=== PATIENT | female | born 1930 | race African-American/Black ===

== ENCOUNTER 2019-11-11 21:50 | Inpatient (IN) | payer MEDICARE ==
[~2019-11-11] VITALS: Ht 170.2 cm; Wt 53.2 kg
--- NOTE | 2019-11-11 22:13 | Emergency Room Report ---
History of Present Illness General Chief Complaint: Upper Respiratory Illness Source: Medical Record, EMS Present Illness HPI This is an unfortunate 89-year-old female from a care home. She has history of respiratory failure, CHF, schizophrenia, cardiomyopathy, Alzheimer, malignant pleural effusion who was admitted to [facility] last month and was discharged to [facility] recently. She was also positive for cocaine pneumonia diagnosed on November 07, 2019. She presents with chief complaint of shortness of breath and fever. Per EMS, she had a fever 101 at the care home. She was also short of breath and hypoxic to 90% on room air. She also has a cough. On her last admission she was admitted for pneumonia. Unknown CODE STATUS. Unable to get any other history from this patient because of her condition. 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 COVID-19 Screening: Positive COVID-19 COVID-19 Testing Source: SNF Patient History Past Medical History: see triage record, old chart reviewed Past Surgical History: other Pertinent Family History: none Social History: Denies: smoking Last Menstrual Period: NA Now: No Immunizations: other Reviewed Nursing Documentation: PMH: Agreed; PSxH: Agreed Nursing Documentation-PMH Hx Cardiac Problems: Yes - CHF; CARDIOMYOPATHY Hx Hypertension: Yes Hx Cancer: Yes - PLEURAL Hx Dialysis: No - AKF History Of Psychiatric Problem: Yes - SCHIZOPHRENIA Hx Neurological Problems: Yes - ALZEIMERS Hx Cerebrovascular Accident: Yes Review of Systems Constitutional: Reports: fever Respiratory: Reports: shortness of breath All Other Systems: limited - Secondary to patient condition Physical Exam Vital Signs Date Time Temp Pulse Resp B/P (MAP) Pulse Ox O2 Delivery O2 Flow Rate FiO2 11/11/19 21:46 96.1 110 26 145/72 (96) 97 Non-Rebreather 15.0 Vitals with tachycardia and hypoxia Sp02 EP Interpretation: abnormal General Appearance: moderate distress, cachetic, Chronically Ill Head: normocephalic, atraumatic Eyes: bilateral eye PERRL, bilateral eye EOMI ENT: dry mucus membranes Neck: no meningismus Respiratory: chest non-tender, respiratory distress, decreased breath sounds, accessory muscle use, crackles, rhonchi Cardiovascular #1: no murmur, tachycardia, irregularly irregular Gastrointestinal: normal bowel sounds, non tender, no mass, no organomegaly, no bruit, non-distended Musculoskeletal: back normal, other - Contracted Neurologic: no focal defects Psychiatric: other Skin: warm/dry Procedures Critical Care Time Critical Care Time Critical care is mandated in this patient who presented with sepsis secondary to cold with pneumonia. Patient require my urgent intervention to attenuate the risks of metabolic collapse which may lead to cardiovascular collapse and . Critical care time is 75 minutes excluding any reportable procedure. Critical care time included evaluation, multiple reevaluation, looking at old charts, interpreting laboratory and diagnostic data, discussing case with patient and family and consultants, and charting. Medical Decision Making Diagnostic Impression: Primary Impression: Severe sepsis Additional Impressions: Pneumonia due to COVID-19 virus Respiratory failure with hypoxia Qualified Codes: J96.21 - Acute and chronic respiratory failure with hypoxia ARF (acute renal failure) Qualified Codes: N17.9 - Acute kidney failure, unspecified Acute metabolic encephalopathy Acute hypernatremia ACS (acute coronary syndrome) Rapid atrial fibrillation ER Course Patient presents with altered mental status secondary to covid with pneumonia. She is very dehydrated with acute renal failure and hypernatremia. Antibiotics given here. She also received steroid and Lovenox. Fluids given. Troponin intermediate secondary to stress response from infection. No evidence of ST elevation ID. EKG show atrial fibrillation. This appear to be new onset. Oxygenation better on oxygen. Prognosis poor based on her age and other comorbidities. I contacted Dr. Cohen for admission. EKG Diagnostic Results Rate: tachycardiac Rhythm: other - Atrial fibrillation ST Segments: other - Nonspecific ST changes ASA given to the pt in ED: No Rhythm Strip Diag. Results EP Interpretation: yes Rate: 107 Rhythm: no PVC's, no ectopy, other - A. fib Chest X-Ray Diagnostic Results Chest X-Ray Diagnostic Results : Chest X-Ray Ordered: Yes # of Views/Limited/Complete: 1 View Indication: Shortness of Breath EP Interpretation: Yes Interpretation: no pneumothorax, other - cm, large right infiltrate vs effusion. Impression: Other - rt LL infiltrates Electronically Signed by: Jakob Burrell MD Last Vital Signs Date Time Temp Pulse Resp B/P (MAP) Pulse Ox O2 Delivery O2 Flow Rate FiO2 11/11/19 21:46 96.1 110 26 145/72 (96) 97 Non-Rebreather 15.0 Status: improved Disposition: ADMITTED INPATIENT Condition: Critical Jakob Burrell MD Nov 11, 2019 22:13
[2019-11-11] MEDS ORDERED: dexAMETHasone 10mg/ml Inj IV ONE (22:15)
[2019-11-11] MEDS ORDERED: Cefepime HCl 2 GM in NS 110 ML IV ONE (22:15)
[2019-11-11 22:30] LABS: HEMATOCRIT 45.6 % (37.0-47.0); HEMOGLOBIN 14.3 G/DL (12.0-16.0); MEAN CORPUSCULAR VOLUME 95 FL (80-99); PLATELET COUNT 80 K/UL (150-450); RED BLOOD COUNT 4.81 M/UL (4.20-5.40); RED CELL DISTRIBUTION WIDTH 16.8 % (11.6-14.8); WHITE BLOOD COUNT 7.5 K/UL (4.8-10.8)
[2019-11-11 22:54] VITALS: BP 145/72
[2019-11-11 23:02] LABS: ALANINE AMINOTRANSFERASE 59 U/L (12-78); ALBUMIN 2.3 G/DL (3.4-5.0); ALBUMIN/GLOBULIN RATIO 0.4 (1.0-2.7); ALKALINE PHOSPHATASE 222 U/L (46-116); ASPARTATE AMINO TRANSFERASE 56 U/L (15-37); BLOOD UREA NITROGEN 95 mg/dL (7-18); CALCIUM 10.3 MG/DL (8.5-10.1); CARBON DIOXIDE 28 MMOL/L (21-32); CHLORIDE 120 MMOL/L (98-107); CREATININE 2.3 MG/DL (0.55-1.30); FERRITIN > 2000 NG/ML (8-388); POTASSIUM 4.6 MMOL/L (3.5-5.1)
[2019-11-11 23:04] LABS: SODIUM 162 MMOL/L (136-145)
[2019-11-11 23:12] VITALS: BP 145/72
[2019-11-11] MEDS ORDERED: Enoxaparin 60mg Inj SUBQ ONE (23:15)
--- NOTE | 2019-11-11 23:19 | Emergency Room Report ---
Sepsis Event Note Evaluation Current Stage of Sepsis: Severe Sepsis Possible Source: Pulmonary Focused Exam Allergies: Coded Allergies: No Known Allergies (Unverified , 11/11/19) Date Exam Occurred: Nov 11, 2019 Time Exam Occurred: 23:19 Laboratory Studies Laboratory Tests Test 11/11/19 22:10 White Blood Count 7.5 K/UL (4.8-10.8) Red Blood Count 4.81 M/UL (4.20-5.40) Hemoglobin 14.3 G/DL (12.0-16.0) Hematocrit 45.6 % (37.0-47.0) Mean Corpuscular Volume 95 FL (80-99) Mean Corpuscular Hemoglobin 29.7 PG (27.0-31.0) Mean Corpuscular Hemoglobin Concent 31.3 G/DL (32.0-36.0) L Red Cell Distribution Width 16.8 % (11.6-14.8) H Platelet Count 80 K/UL (150-450) L Mean Platelet Volume 9.5 FL (6.5-10.1) Neutrophils (%) (Auto) % (45.0-75.0) Lymphocytes (%) (Auto) % (20.0-45.0) Monocytes (%) (Auto) % (1.0-10.0) Eosinophils (%) (Auto) % (0.0-3.0) Basophils (%) (Auto) % (0.0-2.0) Differential Total Cells Counted 100 Neutrophils % (Manual) 81 % (45-75) H Lymphocytes % (Manual) 5 % (20-45) L Monocytes % (Manual) 8 % (1-10) Eosinophils % (Manual) 0 % (0-3) Basophils % (Manual) 0 % (0-2) Band Neutrophils 6 % (0-8) Platelet Estimate Decreased L Platelet Morphology Normal Polychromasia 1+ Hypochromasia 1+ Anisocytosis 1+ D-Dimer 4.28 mg/L FEU (0.00-0.49) H Sodium Level 162 MMOL/L (136-145) *H Potassium Level 4.6 MMOL/L (3.5-5.1) Chloride Level 120 MMOL/L (98-107) H Carbon Dioxide Level 28 MMOL/L (21-32) Blood Urea Nitrogen 95 mg/dL (7-18) H Creatinine 2.3 MG/DL (0.55-1.30) H Estimat Glomerular Filtration Rate 24.2 mL/min (>60) Glucose Level 53 MG/DL (74-106) L Lactic Acid Level Pending Calcium Level 10.3 MG/DL (8.5-10.1) H Ferritin > 2000 NG/ML (8-388) H Total Bilirubin 1.0 MG/DL (0.2-1.0) Aspartate Amino Transf (AST/SGOT) 56 U/L (15-37) H Alanine Aminotransferase (ALT/SGPT) 59 U/L (12-78) Alkaline Phosphatase 222 U/L (46-116) H Troponin I 0.185 ng/mL (0.000-0.056) C-Reactive Protein, Quantitative Pending Total Protein 8.1 G/DL (6.4-8.2) Albumin 2.3 G/DL (3.4-5.0) L Globulin 5.8 g/dL Albumin/Globulin Ratio 0.4 (1.0-2.7) L Vital Signs Last 24 Hour Vital Signs Date Time Temp Pulse Resp B/P (MAP) Pulse Ox O2 Delivery O2 Flow Rate FiO2 11/11/19 23:12 107 30 145/72 99 Simple Mask 10.0 11/11/19 22:54 96.1 109 26 145/72 97 Non-Rebreather 15.0 11/11/19 22:10 110 26 Non-Rebreather 15.0 11/11/19 21:46 96.1 110 26 145/72 (96) 97 Non-Rebreather 15.0 Respiratory Exam: Crackles Cardiovascular Exam: Iregularly Irregular Capillary Refill: Less Than 2 Seconds Peripheral Pulse: Strong Pulse Location: Radial Skin Exam: Normal Jakob Arteaga MD Nov 11, 2019 23:19
[2019-11-11] MEDS ORDERED: Acetaminophen 650 MG SUPP RECTAL PRN (23:30)
[2019-11-12] VITALS (59 sets, daily range): BP systolic 48–140; BP diastolic 31–110
[2019-11-12] MEDS ORDERED: D5 1/2NS 1,000 ML IV SCH (00:15)
[2019-11-12 00:24] LABS: BILIRUBIN, URINE NEGATIVE (NEGATIVE); GLUCOSE, URINE (UA) NEGATIVE (NEGATIVE); KETONES,URINE NEGATIVE (NEGATIVE); LEUKOCYTE ESTERASE ,URINE 2+ (NEGATIVE); NITRITE,URINE POSITIVE (NEGATIVE); PH,URINE 5 (4.5-8.0); PROTEIN,URINE 2+ (NEGATIVE); UROBILINOGEN,URINE NORMAL MG/DL (0.0-1.0)
[2019-11-12 00:30] LABS: APPEARANCE,URINE SLIGHTLY CLOUDY; COLOR,URINE YELLOW
[2019-11-12] MEDS ORDERED: LORazepam Inj 2mg/ml 1ml IV ONE (00:30)
[2019-11-12] MEDS ORDERED: dilTIAZem HCl 25mg/5ml Inj IVP ONE (00:45)
[2019-11-12] MEDS ORDERED: ASPIRIN325 MG ORAL (07:13)
[2019-11-12] MEDS ORDERED: ABILIFY5 MG ORAL (07:13)
[2019-11-12] MEDS ORDERED: MULTIVITAMINS1 EAC2 ORAL (07:13)
[2019-11-12] MEDS ORDERED: LOSARTAN POTASS25 MG ORAL (07:13)
[2019-11-12] MEDS ORDERED: DOCUSATE SODIU100 MG ORAL (07:13)
[2019-11-12] MEDS ORDERED: CARVEDILOL12.5 MG ORAL (07:13)
[2019-11-12] MEDS ORDERED: FUROSEMIDE40 MG ORAL (07:13)
--- NOTE | 2019-11-12 08:20 | Cardiac Electrophysiology PN ---
Subjective Subjective [id number].Unresponsive, Fib 105, BP 50s, Na 162, BUN 95, cr 2.5 Code was called. Transfer to ICU. iv fluid and LEvophed Objective Last 24 Hour Vital Signs Date Time Temp Pulse Resp B/P (MAP) Pulse Ox O2 Delivery O2 Flow Rate FiO2 11/12/19 04:59 Simple Mask 10.0 11/12/19 00:50 97.2 104 24 108/74 98 Simple Mask 10.0 11/12/19 00:50 97.2 104 22 108/66 98 Simple Mask 10.0 11/12/19 00:41 125 148/86 11/12/19 00:41 115 22 142/86 100 11/12/19 00:00 132 32 140/110 96 Simple Mask 10.0 11/11/19 23:12 107 30 145/72 99 Simple Mask 10.0 11/11/19 22:54 96.1 109 26 145/72 97 Non-Rebreather 15.0 11/11/19 22:10 110 26 Non-Rebreather 15.0 11/11/19 21:46 96.1 110 26 145/72 (96) 97 Non-Rebreather 15.0 Intake and Output 11/11/19 11/12/19 19:00 07:00 Intake Total 2335 ml Output Total 300 ml Balance 2035 ml Intake IV Total 2335 ml Output Urine Total 300 ml # Voids 1 Laboratory Tests Test 11/11/19 22:10 11/12/19 00:00 11/12/19 03:10 11/12/19 07:55 White Blood Count 7.5 K/UL (4.8-10.8) Pending Red Blood Count 4.81 M/UL (4.20-5.40) Pending Hemoglobin 14.3 G/DL (12.0-16.0) Pending Hematocrit 45.6 % (37.0-47.0) Pending Mean Corpuscular Volume 95 FL (80-99) Pending Mean Corpuscular Hemoglobin 29.7 PG (27.0-31.0) Pending Mean Corpuscular Hemoglobin Concent 31.3 G/DL (32.0-36.0) L Pending Red Cell Distribution Width 16.8 % (11.6-14.8) H Pending Platelet Count 80 K/UL (150-450) L Pending Mean Platelet Volume 9.5 FL (6.5-10.1) Pending Neutrophils (%) (Auto) % (45.0-75.0) Pending Lymphocytes (%) (Auto) % (20.0-45.0) Pending Monocytes (%) (Auto) % (1.0-10.0) Pending Eosinophils (%) (Auto) % (0.0-3.0) Pending Basophils (%) (Auto) % (0.0-2.0) Pending Differential Total Cells Counted 100 Neutrophils % (Manual) 81 % (45-75) H Lymphocytes % (Manual) 5 % (20-45) L Monocytes % (Manual) 8 % (1-10) Eosinophils % (Manual) 0 % (0-3) Basophils % (Manual) 0 % (0-2) Band Neutrophils 6 % (0-8) Platelet Estimate Decreased L Platelet Morphology Normal Polychromasia 1+ Hypochromasia 1+ Anisocytosis 1+ D-Dimer 4.28 mg/L FEU (0.00-0.49) H Pending Sodium Level 162 MMOL/L (136-145) *H Pending Potassium Level 4.6 MMOL/L (3.5-5.1) Pending Chloride Level 120 MMOL/L (98-107) H Pending Carbon Dioxide Level 28 MMOL/L (21-32) Pending Blood Urea Nitrogen 95 mg/dL (7-18) H Pending Creatinine 2.3 MG/DL (0.55-1.30) H Pending Estimat Glomerular Filtration Rate 24.2 mL/min (>60) Pending Glucose Level 53 MG/DL (74-106) L Pending Lactic Acid Level 2.40 mmol/L (0.4-2.0) H 2.30 mmol/L (0.66-2.22) H Calcium Level 10.3 MG/DL (8.5-10.1) H Pending Ferritin > 2000 NG/ML (8-388) H Pending Total Bilirubin 1.0 MG/DL (0.2-1.0) Pending Aspartate Amino Transf (AST/SGOT) 56 U/L (15-37) H Pending Alanine Aminotransferase (ALT/SGPT) 59 U/L (12-78) Pending Alkaline Phosphatase 222 U/L (46-116) H Pending Troponin I 0.185 ng/mL (0.000-0.056) Pending C-Reactive Protein, Quantitative 73.9 mg/dL (0.00-0.90) H Pending Total Protein 8.1 G/DL (6.4-8.2) Pending Albumin 2.3 G/DL (3.4-5.0) L Pending Globulin 5.8 g/dL Pending Albumin/Globulin Ratio 0.4 (1.0-2.7) L Urine Color Yellow Urine Appearance Slightly cloudy Urine pH 5 (4.5-8.0) Urine Specific [place] 1.015 (1.005-1.035) Urine Protein 2+ (NEGATIVE) H Urine Glucose (UA) Negative (NEGATIVE) Urine Ketones Negative (NEGATIVE) Urine Blood 4+ (NEGATIVE) H Urine Nitrite Positive (NEGATIVE) H Urine Bilirubin Negative (NEGATIVE) Urine Urobilinogen Normal MG/DL (0.0-1.0) Urine Leukocyte Esterase 2+ (NEGATIVE) H Urine RBC 10-15 /HPF (0 - 2) H Urine WBC 30-40 /HPF (0 - 2) H Urine Squamous Epithelial Cells Few /LPF (NONE/OCC) Urine Bacteria Moderate /HPF (NONE) H POC Whole Blood Glucose Pending Phosphorus Level Pending Magnesium Level Pending Microbiology Date/Time Source Procedure Growth Status 11/11/19 22:10 Rectum Received Jordon Serrato MD Nov 12, 2019 08:20
[2019-11-12 08:23] LABS: HEMATOCRIT 38.4 % (37.0-47.0); HEMOGLOBIN 12.1 G/DL (12.0-16.0); MEAN CORPUSCULAR VOLUME 92 FL (80-99); PLATELET COUNT 58 K/UL (150-450); RED BLOOD COUNT 4.16 M/UL (4.20-5.40); WHITE BLOOD COUNT 2.8 K/UL (4.8-10.8)
[2019-11-12 08:45] LABS: ALANINE AMINOTRANSFERASE 32 U/L (12-78); ALBUMIN 1.7 G/DL (3.4-5.0); ALBUMIN/GLOBULIN RATIO 0.4 (1.0-2.7); ALKALINE PHOSPHATASE 173 U/L (46-116); ANION GAP 12 mmol/L (5-15); ASPARTATE AMINO TRANSFERASE 46 U/L (15-37); BILIRUBIN,TOTAL 0.9 MG/DL (0.2-1.0); BLOOD UREA NITROGEN 96 mg/dL (7-18); CALCIUM 9.1 MG/DL (8.5-10.1); CARBON DIOXIDE 28 MMOL/L (21-32); CHLORIDE 124 MMOL/L (98-107); CREATININE 2.7 MG/DL (0.55-1.30); FERRITIN > 2000 NG/ML (8-388); PHOSPHORUS 4.3 MG/DL (2.5-4.9); POTASSIUM 3.6 MMOL/L (3.5-5.1)
[2019-11-12] MEDS ORDERED: dexAMETHasone 10mg/ml Inj IV SCH (09:00)
[2019-11-12] MEDS ORDERED: Azithromycin 500 MG in D5W 275 ML IV SCH (09:00)
[2019-11-12] MEDS ORDERED: cefTRIAXone 1gm/D5W 55ml IVPB SCH ×2 (09:00)
[2019-11-12 09:14] LABS: SODIUM 164 MMOL/L (136-145)
--- NOTE | 2019-11-12 10:06 | Consultation ---
Consult Note Consult Note I am asked to evaluate the patient at the request of Dr. Noel burden. Patient seen in room 237. Discussed with RN. Discussed with Dr. Serrato. This is an unfortunate 89-year-old female from a detention. She has history of respiratory failure, CHF, schizophrenia, cardiomyopathy, Alzheimer, malignant pleural effusion who was admitted to [facility] last month and was discharged to [facility] recently. She was also positive for cocaine pneumonia diagnosed on November 07, 2019. She presents with chief complaint of shortness of breath and fever. Per EMS, she had a fever 101 at the detention. She was also short of breath and hypoxic to 90% on room air. She also has a cough. On her last admission she was admitted for pneumonia. Unknown CODE STATUS. Unable to get any other history from this patient because of her condition. 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 Assessment/Plan Renal Failure: Acute on chronic Hyponatremia partly due to prerenal azotemia and dehydration Pneumonia due to COVID-19 virus Respiratory failure Acute metabolic encephalopathy Acute coronary syndrome, rapid atrial fibrillation Patient was transferred to [facility] by Dr. Serrato Will await for 2D echocardiogram and kidney ultrasound Urine for tox screen since patient have history of cocaine abuse D5W 1 L IV Albumin 5% 500 cc bolus Avoid nephrotoxic's Optimize cardiac and pulmonary status Monitor renal parameters Patient full code Bryn Bower MD Nov 12, 2019 10:06
--- NOTE | 2019-11-12 10:30 | Consultation ---
DATE OF CONSULTATION: 11/12/2019 CARDIOLOGY CONSULTATION CONSULTING PHYSICIAN: Jordon Serrato MD REFERRING PHYSICIAN: Werner Cohen MD REASON FOR CONSULTATION: Hypotension. HISTORY OF PRESENT ILLNESS: The patient is an 89-year-old lady with history of schizophrenia, respiratory failure, congestive heart failure, cardiomyopathy, atrial fibrillation, and history of , who was admitted to [facility] last month and was discharged to [facility]. The patient was positive for COVID pneumonia on November 07, 2019. The patient was admitted for fever, shortness of breath, and had temperature of 101 at [facility] per paramedics. The patient was hypoxic on room air at 90% and had a cough. The patient was admitted for COVID pneumonia. This morning, the patient was noted to have the blood pressure in the 50s and Cardiology consultation was requested. I was actually on the unit when the nurse noted that the blood pressure was low and discussed the case with Dr. Cohen. At the time of my evaluation, the patient is unresponsive and is not able to provide any information. REVIEW OF SYSTEMS: Cannot be obtained. PAST MEDICAL HISTORY: As mentioned above. FAMILY HISTORY: Not available. SOCIAL HISTORY: half-way resident. No history of smoking or drinking. PHYSICAL EXAMINATION: VITAL SIGNS: Blood pressure was 108/66 at 1 o'clock in the morning. This morning, it was 52/30. HEAD AND NECK: Positive JVD. LUNGS: Decreased breath sounds. CARDIOVASCULAR: Shows S1 and S2 with no gallop, irregular. ABDOMEN: Soft. EXTREMITIES: She has 1+ pitting edema. LABORATORY AND DIAGNOSTIC DATA: Her labs show white count 7.5, hemoglobin of 14.3, hematocrit 45.3, and platelet count of 80,000. Sodium 162, potassium 4.6, BUN of 95, creatinine 2.3, and glucose of 53. Urinalysis is positive for bacteria. D-dimer is 4.28. ASSESSMENT AND PLAN: 1. Hypotension. The patient is unresponsive with blood pressure in the 50s. The Code was called. This is partly due to combination of sepsis and dehydration as the sodium is 162 with BUN of 95 and creatinine of 2.3. We will give the patient half-NS bolus. The patient was transferred to intensive care unit, but the Code was activated. The patient may need to be intubated in view of her altered level of consciousness. The patient is already on broad-spectrum IV antibiotics. 2. Elevated troponin of 0.185. It could be due to renal failure as BUN is 95 and creatinine 2.3. We will repeat cardiac enzymes and get the EKG and echocardiogram for further evaluation. 3. Severe hypernatremia. Sodium 162. IV fluids per ordering box operator. 4. Renal failure. BUN of 95, creatinine 2.3, and likely dehydration. 5. COVID-19 pneumonia. 6. Atrial fibrillation. I will discontinue metoprolol, hold off on anticoagulants, and then the patient is started on heparin drip, dexamethasone, azithromycin, and ceftriaxone. Thank you very much, Dr. Cohen, for allowing me to participate in the care of this patient. Please do not hesitate to contact me for any questions regarding my evaluation. Jordon Serrato M.D. DR: Anatoliy JOB#: [id number] CC:
[2019-11-12] MEDS: Norepinephrine 4mg/NS Premix 250 ML IV SCH ×2 (10:53→15:26)
--- NOTE | 2019-11-12 11:27 | Diagnostic Imaging Report ---
Procedure: XRAY Chest 1v Reason for study: Reason For Exam: SOB Comparison films: None. FINDINGS: A single one view chest is obtained. Vascularity is normal. Confluent alveolar densities in the right lung noted compatible with right lung infiltrates. Only mild haziness noted on the left side. There is cardiomegaly and tortuous aorta. There may be a small right effusion IMPRESSION: Right lung infiltrates and small right effusion.
--- NOTE | 2019-11-12 12:18 | Consultation ---
History of Present Illness General Date patient seen: Nov 12, 2019 Chief Complaint: Upper Respiratory Illness Present Illness HPI 89-year-old female with a history of respiratory failure, CHF, schizophrenia, cardiomyopathy, Alzheimer, malignant pleural effusion presented to ER by paramedics with chief complaint of shortness of breath and fever. She had a fever 101 at the [facility]. She was also short of breath and hypoxic to 90% on room air. She was diagnosed to have pneumonia, renal failure and rapid afib and admitted to [facility] Currently she is obtunded and desaturating to 70's on NRM. I called pt's son Russell, who stated that short intubation would be ok but no chest compression or cardiac shock. Allergies: Coded Allergies: No Known Allergies (Unverified , 11/11/19) Medication History Scheduled Aripiprazole* (Abilify*), 5 MG ORAL DAILY, (Reported) Aspirin* (Aspirin*), 325 MG ORAL DAILY, (Reported) Carvedilol* (Carvedilol*), 12.5 MG ORAL EVERY 12 HOURS, (Reported) Docusate Sodium* (Docusate Sodium*), 100 MG ORAL TWICE A DAY, (Reported) Furosemide* (Lasix*), 40 MG ORAL DAILY, (Reported) Losartan Potassium* (Losartan Potassium*), 25 MG ORAL DAILY, (Reported) Multivitamins* (Multivitamins*), 1 TAB ORAL DAILY, (Reported) Patient History Healthcare decision maker Resuscitation status Advanced Directive on File Past Medical/Surgical History Past Medical/Surgical History: (1) Chronic atrial fibrillation (2) Schizophrenia (3) Alzheimer's dementia (4) History of CVA (cerebrovascular accident) Review of Systems All Other Systems: negative except mentioned in HPI Physical Exam General Appearance: cachetic, thin Lines, tubes and drains: peripheral, central line HEENT: normocephalic, atraumatic Neck: non-tender, normal alignment Respiratory/Chest: chest wall non-tender, lungs clear Breasts: no masses Cardiovascular/Chest: normal rate, tachycardia Abdomen: normal bowel sounds, non tender Genitourinary/Rectal: normal genital exam Extremities: normal range of motion Skin Exam: normal pigmentation Last 24 Hour Vital Signs Date Time Temp Pulse Resp B/P (MAP) Pulse Ox O2 Delivery O2 Flow Rate FiO2 11/12/19 11:09 Non-Rebreather 15.0 11/12/19 11:04 45 67/45 (52) 92 11/12/19 10:53 64/38 11/12/19 10:30 42 65/35 (45) 92 11/12/19 10:00 42 92/61 (71) 95 11/12/19 09:29 Simple Mask 10.0 11/12/19 09:00 Simple Mask 10.0 11/12/19 09:00 116 40 95/62 (73) 94 11/12/19 09:00 Simple Mask 10.0 11/12/19 08:00 96.9 115 20 106/60 (75) 99 11/12/19 08:00 103 11/12/19 08:00 115 11/12/19 04:59 Simple Mask 10.0 11/12/19 00:50 97.2 104 24 108/74 98 Simple Mask 10.0 11/12/19 00:50 97.2 104 22 108/66 98 Simple Mask 10.0 11/12/19 00:41 125 148/86 11/12/19 00:41 115 22 142/86 100 11/12/19 00:00 132 32 140/110 96 Simple Mask 10.0 11/11/19 23:12 107 30 145/72 99 Simple Mask 10.0 11/11/19 22:54 96.1 109 26 145/72 97 Non-Rebreather 15.0 11/11/19 22:10 110 26 Non-Rebreather 15.0 11/11/19 21:46 96.1 110 26 145/72 (96) 97 Non-Rebreather 15.0 Intake and Output 11/11/19 11/12/19 19:00 07:00 Intake Total 2335 ml Output Total 300 ml Balance 2035 ml Intake IV Total 2335 ml Output Urine Total 300 ml # Voids 1 Laboratory Tests Test 11/11/19 22:10 11/12/19 00:00 11/12/19 03:10 11/12/19 07:55 White Blood Count 7.5 K/UL (4.8-10.8) 2.8 K/UL (4.8-10.8) #L Red Blood Count 4.81 M/UL (4.20-5.40) 4.16 M/UL (4.20-5.40) L Hemoglobin 14.3 G/DL (12.0-16.0) 12.1 G/DL (12.0-16.0) Hematocrit 45.6 % (37.0-47.0) 38.4 % (37.0-47.0) Mean Corpuscular Volume 95 FL (80-99) 92 FL (80-99) Mean Corpuscular Hemoglobin 29.7 PG (27.0-31.0) 29.0 PG (27.0-31.0) Mean Corpuscular Hemoglobin Concent 31.3 G/DL (32.0-36.0) L 31.4 G/DL (32.0-36.0) L Red Cell Distribution Width 16.8 % (11.6-14.8) H 16.0 % (11.6-14.8) H Platelet Count 80 K/UL (150-450) L 58 K/UL (150-450) L Mean Platelet Volume 9.5 FL (6.5-10.1) 8.9 FL (6.5-10.1) Neutrophils (%) (Auto) % (45.0-75.0) % (45.0-75.0) Lymphocytes (%) (Auto) % (20.0-45.0) % (20.0-45.0) Monocytes (%) (Auto) % (1.0-10.0) % (1.0-10.0) Eosinophils (%) (Auto) % (0.0-3.0) % (0.0-3.0) Basophils (%) (Auto) % (0.0-2.0) % (0.0-2.0) Differential Total Cells Counted 100 100 Neutrophils % (Manual) 81 % (45-75) H 76 % (45-75) H Lymphocytes % (Manual) 5 % (20-45) L 6 % (20-45) L Monocytes % (Manual) 8 % (1-10) 6 % (1-10) Eosinophils % (Manual) 0 % (0-3) 0 % (0-3) Basophils % (Manual) 0 % (0-2) 0 % (0-2) Band Neutrophils 6 % (0-8) 12 % (0-8) H Platelet Estimate Decreased L Decreased L Platelet Morphology Normal Normal Polychromasia 1+ Hypochromasia 1+ 1+ Anisocytosis 1+ 1+ D-Dimer 4.28 mg/L FEU (0.00-0.49) H 4.35 mg/L FEU (0.00-0.49) H Sodium Level 162 MMOL/L (136-145) *H 164 MMOL/L (136-145) *H Potassium Level 4.6 MMOL/L (3.5-5.1) 3.6 MMOL/L (3.5-5.1) Chloride Level 120 MMOL/L (98-107) H 124 MMOL/L (98-107) H Carbon Dioxide Level 28 MMOL/L (21-32) 28 MMOL/L (21-32) Blood Urea Nitrogen 95 mg/dL (7-18) H 96 mg/dL (7-18) H Creatinine 2.3 MG/DL (0.55-1.30) H 2.7 MG/DL (0.55-1.30) H Estimat Glomerular Filtration Rate 24.2 mL/min (>60) 20.2 mL/min (>60) Glucose Level 53 MG/DL (74-106) L 69 MG/DL (74-106) L Lactic Acid Level 2.40 mmol/L (0.4-2.0) H 2.30 mmol/L (0.66-2.22) H Calcium Level 10.3 MG/DL (8.5-10.1) H 9.1 MG/DL (8.5-10.1) Ferritin > 2000 NG/ML (8-388) H > 2000 NG/ML (8-388) H Total Bilirubin 1.0 MG/DL (0.2-1.0) 0.9 MG/DL (0.2-1.0) Aspartate Amino Transf (AST/SGOT) 56 U/L (15-37) H 46 U/L (15-37) H Alanine Aminotransferase (ALT/SGPT) 59 U/L (12-78) 32 U/L (12-78) Alkaline Phosphatase 222 U/L (46-116) H 173 U/L (46-116) H Troponin I 0.185 ng/mL (0.000-0.056) 0.006 ng/mL (0.000-0.056) C-Reactive Protein, Quantitative 73.9 mg/dL (0.00-0.90) H 49.2 mg/dL (0.00-0.90) H Total Protein 8.1 G/DL (6.4-8.2) 6.3 G/DL (6.4-8.2) L Albumin 2.3 G/DL (3.4-5.0) L 1.7 G/DL (3.4-5.0) L Globulin 5.8 g/dL 4.6 g/dL Albumin/Globulin Ratio 0.4 (1.0-2.7) L 0.4 (1.0-2.7) L Urine Color Yellow Urine Appearance Slightly cloudy Urine pH 5 (4.5-8.0) Urine Specific [place] 1.015 (1.005-1.035) Urine Protein 2+ (NEGATIVE) H Urine Glucose (UA) Negative (NEGATIVE) Urine Ketones Negative (NEGATIVE) Urine Blood 4+ (NEGATIVE) H Urine Nitrite Positive (NEGATIVE) H Urine Bilirubin Negative (NEGATIVE) Urine Urobilinogen Normal MG/DL (0.0-1.0) Urine Leukocyte Esterase 2+ (NEGATIVE) H Urine RBC 10-15 /HPF (0 - 2) H Urine WBC 30-40 /HPF (0 - 2) H Urine Squamous Epithelial Cells Few /LPF (NONE/OCC) Urine Bacteria Moderate /HPF (NONE) H POC Whole Blood Glucose Pending Anion Gap 12 mmol/L (5-15) Phosphorus Level 4.3 MG/DL (2.5-4.9) Magnesium Level 2.9 MG/DL (1.8-2.4) H Test 11/12/19 08:21 Arterial Blood pH 7.402 (7.350-7.450) Arterial Blood Partial Pressure CO2 40.6 mmHg (35.0-45.0) Arterial Blood Partial Pressure O2 47.5 mmHg (75.0-100.0) Arterial Blood HCO3 24.7 mmol/L (22.0-26.0) Arterial Blood Oxygen Saturation 79.0 % (95-100) *L Arterial Blood Base Excess 0 (-2-2) [place] Test Positive Microbiology Date/Time Source Procedure Growth Status 11/11/19 22:10 Rectum Received Height (Feet): 5 Height (Inches): 7.00 Weight (Pounds): 125 Medications Current Medications Medications (Trade) Dose Ordered Sig/Matias Route PRN Reason Start Time Stop Time Status Last Admin Dose Admin Acetaminophen (Tylenol) 650 mg Q6H PRN ORAL For Headache 11/12/19 06:30 12/12/19 06:29 Aspirin (ASA) 325 mg DAILY ORAL 11/12/19 09:00 12/27/19 08:59 Azithromycin 500 mg/Dextrose 275 ml @ 275 mls/hr DAILY IV 11/12/19 09:00 11/16/19 09:59 11/12/19 10:09 Ceftriaxone Sodium 1 gm/ Dextrose 55 ml @ 110 mls/hr Q24H IVPB 11/12/19 09:00 11/19/19 08:59 11/12/19 10:08 Dexamethasone Sodium Phosphate (Decadron 10mg/ ml Inj) 6 mg DAILY IV 11/12/19 09:00 11/21/19 09:01 11/12/19 10:07 Dextrose 1,000 ml @ 200 mls/hr Q5H IV 11/12/19 10:15 11/12/19 15:14 11/12/19 11:30 Docusate Sodium (Colace) 100 mg THREE TIMES A DAY ORAL 11/12/19 13:00 12/12/19 12:59 Heparin Sodium (Porcine) (Heparin 5000 units/ml) 5,000 units EVERY 8 HOURS SUBQ 11/12/19 14:00 12/27/19 13:59 Norepinephrine Bitartrate 250 ml @ 0 mls/hr Q24H IV 11/12/19 10:30 02/10/20 10:29 11/12/19 10:53 Pantoprazole (Protonix) 40 mg EVERY 12 HOURS IVP 11/12/19 21:00 12/12/19 20:59 Assessment/Plan Problem List: (1) Respiratory failure with hypoxia ICD Codes: J96.91 - Respiratory failure, unspecified with hypoxia SNOMED: 38915027380455747, 796501800 Qualifiers: Qualified Codes: J96.21 - Acute and chronic respiratory failure with hypoxia (2) Severe sepsis ICD Codes: A41.9 - Sepsis, unspecified organism; R65.20 - Severe sepsis without septic shock SNOMED: 81790102, 789416251 (3) Rapid atrial fibrillation ICD Codes: I48.91 - Unspecified atrial fibrillation SNOMED: 645631975 (4) Acute hypernatremia ICD Codes: E87.0 - Hyperosmolality and hypernatremia; R65.20 - Severe sepsis without septic shock SNOMED: 6530396, 501978760 (5) Pneumonia due to COVID-19 virus ICD Codes: U07.1 - COVID-19; J12.89 - Other viral pneumonia SNOMED: 951712853, 827738476 (6) History of CVA (cerebrovascular accident) ICD Codes: Z86.73 - Personal history of transient ischemic attack (TIA), and cerebral infarction without residual deficits SNOMED: 655774106 (7) Alzheimer's dementia ICD Codes: G30.9 - Alzheimer's disease, unspecified; F02.80 - Dementia in other diseases classified elsewhere without behavioral disturbance SNOMED: 79423427 (8) Schizophrenia ICD Codes: F20.9 - Schizophrenia, unspecified SNOMED: 23554891 Assessment/Plan: IV bolus to support BP central line to give pressors fluids to correct hyper natremia iv abx renal studies ID evaluation aspiration precaution titrate fio2 to sat of 92% dvt prophylaxis Sylwia Tran MD Nov 12, 2019 12:18
--- NOTE | 2019-11-12 12:47 | Diagnostic Imaging Report ---
EXAM: ULTRASOUND US Renal Comp CLINICAL HISTORY: Abdominal pain. COMPARISON: None TECHNIQUE: Ultrasound examination of the kidneys includes grayscale images, and color and spectral doppler analysis. FINDINGS: The patient is lying in a left lateral decubitus position and unable to change position. Therefore the left kidney was not accessible and not visualized. The right kidney measures 8.1 x 3.0 x 4.2 cm . Increased cortical echogenicity noted likely reflecting chronic medical renal disease. No hydronephrosis noted. Bladder is empty. IMPRESSION: SMALL ECHOGENIC RIGHT KIDNEY LIKELY REFLECTING MEDICAL RENAL DISEASE. NO OBSTRUCTIVE UROPATHY. LEFT SIDE OF ABDOMEN NOT ACCESSIBLE. LEFT KIDNEY NOT VISUALIZED.
--- NOTE | 2019-11-12 12:57 | Diagnostic Imaging Report ---
EXAM: ULTRASOUND Venous Duplex UPPR EXT Bilat CLINICAL HISTORY: Leg pain and edema. COMPARISON: None TECHNIQUE: Doppler examination include grayscale images obtained with and without compression, and color and spectral doppler analysis. FINDINGS: There is limited visualization of the right popliteal vein and right calf veins due to patient positioning. Doppler examination shows normal spontaneity, phasicity, compressibility in the visualized segments of both lower extremities. There is no thrombus identified by grayscale. Normal color and spectral flow is identified. There is no evidence of valvular incompetency or insufficiency. IMPRESSION: NO ACUTE DVT IN THE VISUALIZED SEGMENTS OF BOTH LOWER EXTREMITIES. LIMITED VISUALIZATION OF THE RIGHT POPLITEAL VEIN AND CALF VESSELS.
[2019-11-12] MEDS: Docusate 100mg cap ORAL SCH ×2 (13:00→17:58)
[2019-11-12] MEDS ORDERED: Heparin 5000 units/ml inj SUBQ SCH (14:00)
--- NOTE | 2019-11-12 14:05 | Cardiology Report ---
APPROVED REPORT EXAM: Two-dimensional and M-mode echocardiogram with Doppler and color Doppler. INDICATION Atrial Fibrillation M-Mode DIMENSIONS IVSd0.8 (0.7-1.1cm)Left Atrium (MM)4.1 (1.6-4.0cm) LVDd5.1 (3.5-5.6cm)Aortic Root3.1 (2.0-3.7cm) PWd0.8 (0.7-1.1cm)Aortic Cusp Exc.1.7 (1.5-2.0cm) IVSs1.0 cm LVDs4.4 (2.5-4.0cm) PWs1.4 cm <Conclusion> Mild left ventricular enlargement. Global left ventricular hypokinesis. Left ventricular ejection fraction estimated to be 20-25 %. No evidence of left ventricular hypertrophy. No evidence of pericardial effusion. Mild left atrial enlargement. Right cardiac chamber sizes are within normal limits. Moderate focal aortic valve sclerosis with normal cusp excursion. Thickened mitral valve leaflets with normal excursion. Mitral annulus and aortic root calcification. Pulmonic valve not well visualized. Normal tricuspid valve structure. IVC measured at size 1.4cm with slight physiologic collapse. A color flow and spectral Doppler study was performed and revealed: Mild aortic insufficiency . Mild mitral regurgitation. Left ventricular diastolic function not diagnostic due to A-FIB. Moderate tricuspid regurgitation. Tricuspid systolic velocities suggests peak right ventricular systolic pressure of 27 mmHg. Trace pulmonic regurgitation present.
--- NOTE | 2019-11-12 14:10 | Emergency Room Report ---
History of Present Illness General Chief Complaint: Upper Respiratory Illness Source: Medical Record, EMS Present Illness HPI Called for central line from ED to inpatient floor. 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 COVID-19 Screening: Positive COVID-19 COVID-19 Testing Source: SNF Patient History Last Menstrual Period: NA Now: No Nursing Documentation-PMH Hx Cardiac Problems: Yes - CHF; CARDIOMYOPATHY Hx Hypertension: Yes Hx Cancer: Yes - PLEURAL Hx Gastrointestinal Problems: No Hx Dialysis: No - AKF History Of Psychiatric Problem: Yes - SCHIZOPHRENIA Hx Neurological Problems: Yes - ALZEIMERS Hx Cerebrovascular Accident: Yes Physical Exam Vital Signs Date Time Temp Pulse Resp B/P (MAP) Pulse Ox O2 Delivery O2 Flow Rate FiO2 11/11/19 21:46 96.1 110 26 145/72 (96) 97 Non-Rebreather 15.0 11/12/19 12:12 100 Procedures Central Line Central Line : Consent: Emergent Central Line Lumen: triple Maximal Sterile Barrier Tech: yes cap, yes mask, yes sterile gown, yes sterile gloves, yes large sterile sheet, yes hand hygiene, yes chlorhexidine prep Central Line Postion: femoral (R) US Guided Line?: Yes Vessel visualized with U/S: Right Femoral Vein Ultrasound Findings: Collapsible Vessel, Vessel Patent, Visualize vessel puncture Complications: none Central Line Post Position: sutured, good blood return Attempts: One Patient Tolerated: Well Complications: None Medical Decision Making Diagnostic Impression: Primary Impression: Severe sepsis Additional Impressions: Pneumonia due to COVID-19 virus Respiratory failure with hypoxia Qualified Codes: J96.21 - Acute and chronic respiratory failure with hypoxia ARF (acute renal failure) Qualified Codes: N17.9 - Acute kidney failure, unspecified ACS (acute coronary syndrome) Acute metabolic encephalopathy Rapid atrial fibrillation Acute hypernatremia ER Course I was called by this patient's primary care physician to put in a central line. The patient is in the ICU stepdown unit. The patient is in septic shock and on Levophed and only has peripheral access. The patient's primary care physician is requesting that I place a triple-lumen see my procedure note. Given the urgency of the patient's medical condition I did place the central line. Please see my procedure note. Last Vital Signs Date Time Temp Pulse Resp B/P (MAP) Pulse Ox O2 Delivery O2 Flow Rate FiO2 11/12/19 12:46 96.7 40 97/62 (74) 95 11/12/19 12:14 123 Bi-Pap 100 11/12/19 11:09 15.0 Disposition: ADMITTED INPATIENT Condition: Critical Referrals: NON PHYSICIAN (PCP) Ruth Kirkland DO Nov 12, 2019 14:10
--- NOTE | 2019-11-12 14:17 | Cardiology Report ---
APPROVED REPORT EKG Measurement Heart [id number] <Conclusion> Atrial fibrillation with rapid ventricular response T wave abnormality, consider lateral ischemia Abnormal ECG
[2019-11-12] MEDS ORDERED: ACETAMINOPHEN325 M1 ORAL (15:45)
--- NOTE | 2019-11-12 16:34 | History & Physical ---
History and Physical History & Physicial Dictated for Int Med-Dr Jurado no. [id number]. Kyle Meng MD Nov 12, 2019 16:34
--- NOTE | 2019-11-12 17:15 | History and Physical Report ---
DATE OF ADMISSION: 11/11/2019 CHIEF COMPLAINT: The patient is an 89-year-old female who presents with a chief complaint of shortness of breath. HISTORY OF PRESENT ILLNESS: The patient was admitted to [facility] in September 2019 for respiratory distress. The patient was found to have pneumonia and was intubated at that time. The patient was discharged to [facility]. According to staff at [facility], the patient began to experience shortness of breath on November 10, 2019. The patient then began to experience fevers of up to 101 degrees Fahrenheit. The patient also was noted to have hypoxia with oxygen saturation of 90% on room air. The patient is also COVID-19 positive diagnosed on November 07, 2019. The patient presented to [place] emergency room. A chest x-ray revealed right pneumonia. The patient was placed on BIPAP in the emergency room. The patient is currently in the intensive care unit. The patient is admitted with COVID-19 positive and respiratory failure secondary to pneumonia. REVIEW OF SYSTEMS: Unable to assess secondary to the patient's mental status. PAST MEDICAL HISTORY: Significant for: 1. Hypertension. 2. Atrial fibrillation. 3. Congestive heart failure. 4. Cardiomyopathy. 5. Cerebrovascular disease status post TIA and cerebrovascular accident. 6. Alzheimer's dementia. 7. Dysphagia. 8. Schizophrenia. PAST SURGICAL HISTORY: Denies. CURRENT MEDICATIONS: 1. Abilify 5 mg one tablet p.o. daily. 2. Aspirin 325 mg one tablet p.o. daily. 3. Carvedilol 12.5 mg p.o. twice daily. 4. Lasix 40 mg p.o. daily. 5. Losartan 25 mg p.o. daily. 6. Multivitamin p.o. daily. ALLERGIES: No known drug allergies. SOCIAL HISTORY: The patient is and a resident of [facility]. The patient denies tobacco or alcohol use. PHYSICAL EXAMINATION: VITAL SIGNS: Temperature 96.1, respirations 26, pulse 110, blood pressure 145/72. GENERAL: The patient is thin-appearing female, in moderate respiratory distress. HEENT: Eyes, pupils are equal and responsive to light and accommodation. Extraocular movements are intact. NECK: Supple. No lymphadenopathy. CHEST: Coarse upper air mechanical sounds otherwise without wheezes or rales. CARDIOVASCULAR: Tachycardic, irregular rhythm, irregular rate. S1 and S2 are normal without murmurs, rubs, gallops. ABDOMEN: Soft, nontender, and nondistended. Positive bowel sounds. No evidence of hepatosplenomegaly. Currently, no rebound or guarding noted. EXTREMITIES: Negative for clubbing, cyanosis, or edema. RECTAL/GENITAL: Not performed. NEUROLOGIC: Cranial nerves II through XII are grossly intact without focal deficits. LABORATORY AND DIAGNOSTIC DATA: WBC 7.5, hemoglobin 14.3, hematocrit 45.6, platelets 80,000. Sodium 162, potassium 4.6, chloride 120, CO2 28, BUN 95, creatinine 2.3, glucose. Lactic acid 2.40. Troponin elevated at 0.185. Chest x-ray showed multiple right infiltrate consistent with pneumonia. EKG demonstrated atrial fibrillation with ventricular rate of approximately 124 beats per minute. ASSESSMENT: This is a 89-year-old female. 1. Respiratory failure. 2. Right pneumonia. 3. COVID-19 positive. 4. Atrial fibrillation. 5. Hypertension. 6. Congestive heart failure. 7. Cardiomyopathy. 8. Cerebrovascular disease. 9. Alzheimer's dementia. 10. Dysphagia. 11. Schizophrenia. TREATMENT: 1. Respiratory failure. A Pulmonary consultation has been obtained with Dr. Sylwia Tran. Respiratory failure secondary to right-sided pneumonia as below. Follow recommendations of Pulmonary with regard to BIPAP/mechanical ventilation. 2. Right-sided pneumonia. The patient has been started empirically on ceftriaxone and azithromycin. Sputum culture is pending. An Infectious Diseases consultation has been obtained with Dr. Gross. We will follow recommendations of Infectious Disease. 3. Atrial fibrillation. A Cardiology consultation has been obtained with Dr. Demarcus Boykin. 4. Hypertension. Continue Coreg as above. 5. Congestive heart failure/cardiomyopathy as above. A Cardiology consultation has been obtained with Dr. Demarcus Boykin. Left ventricular ejection fraction is 40% by echocardiogram. Follow recommendations of Cardiology. 6. Cerebrovascular disease. 7. Alzheimer's dementia. 8. Dysphagia. 9. Schizophrenia. Kyle Meng M.D. DR: Gwendolyn JOB#: [id number] CC: [email or web address]
[2019-11-12] MEDS ORDERED: Norepinephrine Bitartrate 16 MG in D5W 500ml 484 ML IV SCH (18:00)
[2019-11-12] MEDS ORDERED: Dyna-Hex 2% Top Sol 2oz TOPIC SCH (20:00)
[2019-11-12] MEDS ORDERED: Pantoprazole Inj IVP SCH (21:00)
[2019-11-12] MEDS ORDERED: Phenylephrine 100 MG in D5W 240 ML IV SCH (21:30)
[2019-11-12] MEDS ORDERED: LORazepam Inj 2mg/ml 1ml IV PRN (22:30)
--- NOTE | 2019-11-12 22:56 | Emergency Room Report ---
Physical Exam Called to intubate patient. Patient hypoxemic on BiPAP. COVID-19 pneumonia. Last 24 Hour Vital Signs Date Time Temp Pulse Resp B/P (MAP) Pulse Ox O2 Delivery O2 Flow Rate FiO2 11/12/19 22:04 163 41 100 11/12/19 22:00 Mechanical Ventilator 11/12/19 21:31 128 48/33 11/12/19 20:01 142 48 95 100 11/12/19 20:00 Bi-pap 11/12/19 19:00 103/79 11/12/19 19:00 136 45 103/79 (87) 96 11/12/19 18:30 140 48 109/84 (92) 96 11/12/19 18:00 139 50 96/75 (82) 95 11/12/19 17:54 93/64 11/12/19 17:30 139 38 98/78 (85) 96 11/12/19 17:00 135 39 103/87 (92) 96 11/12/19 16:45 137 39 108/75 (86) 96 11/12/19 16:30 136 39 96/71 (79) 97 11/12/19 16:15 132 39 112/81 (91) 96 11/12/19 16:00 Bi-pap 11/12/19 16:00 98.4 133 40 100/70 (80) 96 11/12/19 16:00 135 11/12/19 15:45 127 42 117/70 (86) 96 11/12/19 15:30 131 38 105/74 (84) 96 11/12/19 15:26 104/64 11/12/19 15:15 130 42 104/64 (77) 95 11/12/19 15:13 125 11/12/19 15:00 128 47 100/75 (83) 96 11/12/19 14:45 133 41 110/89 (96) 98 11/12/19 14:30 98.2 11/12/19 14:30 117 48 92 100 11/12/19 14:30 Bi-pap 11/12/19 14:30 130 11/12/19 14:30 127 24 108/86 (93) 94 11/12/19 14:00 118 38 95/52 (66) 93 11/12/19 13:15 120 41 71/42 (52) 11/12/19 13:00 96.7 123 40 67/48 (54) 95 11/12/19 12:46 96.7 110 40 97/62 (74) 95 11/12/19 12:14 123 50 88 Bi-Pap 100 11/12/19 12:12 123 50 88 100 11/12/19 12:10 115 11/12/19 12:06 96.7 40 95/67 (76) 93 11/12/19 11:45 125 45 64/41 (49) 92 11/12/19 11:15 45 75/45 (55) 92 11/12/19 11:09 Non-Rebreather 15.0 11/12/19 11:04 123 45 67/45 (52) 92 11/12/19 10:53 64/38 11/12/19 10:00 120 42 92/61 (71) 95 11/12/19 09:29 Simple Mask 10.0 11/12/19 09:00 Simple Mask 10.0 11/12/19 09:00 116 40 95/62 (73) 94 11/12/19 09:00 Simple Mask 10.0 11/12/19 08:00 96.9 115 20 106/60 (75) 99 11/12/19 08:00 103 11/12/19 08:00 115 11/12/19 04:59 Simple Mask 10.0 11/12/19 00:50 97.2 104 24 108/74 98 Simple Mask 10.0 11/12/19 00:50 97.2 104 22 108/66 98 Simple Mask 10.0 11/12/19 00:41 125 148/86 11/12/19 00:41 115 22 142/86 100 11/12/19 00:00 132 32 140/110 96 Simple Mask 10.0 11/11/19 23:12 107 30 145/72 99 Simple Mask 10.0 Sp02 EP Interpretation: reviewed, abnormal - Interpreted as low by me General Appearance: other - Unresponsive, Chronically Ill Head: normocephalic, atraumatic Eyes: bilateral eye PERRL, bilateral eye abnormal EOM - Not moving eyes ENT: dry mucus membranes Neck: supple Respiratory: other Cardiovascular #1: tachycardia Gastrointestinal: scaphoid Genitourinary: other - Cates Musculoskeletal: decreased range of motion - Unresponsive Neurologic: other - Unresponsive Psychiatric: other - Unresponsive Skin: warm/dry, mottled Intubation Intubation : Consent: Emergent Intubation Method: orotracheal Tube Size (cm): 7.5 - 23 cm at the teeth Medications: Other - Etomidate was drawn up but not used as patient was unresponsive Breath Sounds after Intubation: equal - Per RN Intubation Complications: no complications Post Intubation Xray: Yes Attempts: One Patient Tolerated: Well Complications: None Progress Full PPE used as patient COVID-19 positive Initial ventilator orders given by me. Medical Decision Making Diagnostic Impression: Primary Impression: Respiratory failure with hypoxia Qualified Codes: J96.21 - Acute and chronic respiratory failure with hypoxia Additional Impression: Pneumonia due to COVID-19 virus ER Course Called to intubate patient as patient hypoxemic on BiPAP. Please see intubation notes. Patient tolerated the procedure well however she is critically ill. Postintubation x-ray with adequate endotracheal tube placement and bilateral infiltrates. Prognosis poor. Laboratory Tests Test 11/11/19 22:10 11/12/19 00:00 11/12/19 03:10 11/12/19 07:55 White Blood Count 7.5 K/UL (4.8-10.8) 2.8 K/UL (4.8-10.8) #L Red Blood Count 4.81 M/UL (4.20-5.40) 4.16 M/UL (4.20-5.40) L Hemoglobin 14.3 G/DL (12.0-16.0) 12.1 G/DL (12.0-16.0) Hematocrit 45.6 % (37.0-47.0) 38.4 % (37.0-47.0) Mean Corpuscular Volume 95 FL (80-99) 92 FL (80-99) Mean Corpuscular Hemoglobin 29.7 PG (27.0-31.0) 29.0 PG (27.0-31.0) Mean Corpuscular Hemoglobin Concent 31.3 G/DL (32.0-36.0) L 31.4 G/DL (32.0-36.0) L Red Cell Distribution Width 16.8 % (11.6-14.8) H 16.0 % (11.6-14.8) H Platelet Count 80 K/UL (150-450) L 58 K/UL (150-450) L Mean Platelet Volume 9.5 FL (6.5-10.1) 8.9 FL (6.5-10.1) Neutrophils (%) (Auto) % (45.0-75.0) % (45.0-75.0) Lymphocytes (%) (Auto) % (20.0-45.0) % (20.0-45.0) Monocytes (%) (Auto) % (1.0-10.0) % (1.0-10.0) Eosinophils (%) (Auto) % (0.0-3.0) % (0.0-3.0) Basophils (%) (Auto) % (0.0-2.0) % (0.0-2.0) Differential Total Cells Counted 100 100 Neutrophils % (Manual) 81 % (45-75) H 76 % (45-75) H Lymphocytes % (Manual) 5 % (20-45) L 6 % (20-45) L Monocytes % (Manual) 8 % (1-10) 6 % (1-10) Eosinophils % (Manual) 0 % (0-3) 0 % (0-3) Basophils % (Manual) 0 % (0-2) 0 % (0-2) Band Neutrophils 6 % (0-8) 12 % (0-8) H Platelet Estimate Decreased L Decreased L Platelet Morphology Normal Normal Polychromasia 1+ Hypochromasia 1+ 1+ Anisocytosis 1+ 1+ D-Dimer 4.28 mg/L FEU (0.00-0.49) H 4.35 mg/L FEU (0.00-0.49) H Sodium Level 162 MMOL/L (136-145) *H 164 MMOL/L (136-145) *H Potassium Level 4.6 MMOL/L (3.5-5.1) 3.6 MMOL/L (3.5-5.1) Chloride Level 120 MMOL/L (98-107) H 124 MMOL/L (98-107) H Carbon Dioxide Level 28 MMOL/L (21-32) 28 MMOL/L (21-32) Blood Urea Nitrogen 95 mg/dL (7-18) H 96 mg/dL (7-18) H Creatinine 2.3 MG/DL (0.55-1.30) H 2.7 MG/DL (0.55-1.30) H Estimated Glomerular Filtration Rate 24.2 mL/min (>60) 20.2 mL/min (>60) Glucose Level 53 MG/DL (74-106) L 69 MG/DL (74-106) L Lactic Acid Level 2.40 mmol/L (0.4-2.0) H 2.30 mmol/L (0.66-2.22) H Calcium Level 10.3 MG/DL (8.5-10.1) H 9.1 MG/DL (8.5-10.1) Ferritin > 2000 NG/ML (8-388) H > 2000 NG/ML (8-388) H Total Bilirubin 1.0 MG/DL (0.2-1.0) 0.9 MG/DL (0.2-1.0) Aspartate Amino Transferase (AST) 56 U/L (15-37) H 46 U/L (15-37) H Alanine Aminotransferase (ALT) 59 U/L (12-78) 32 U/L (12-78) Alkaline Phosphatase 222 U/L (46-116) H 173 U/L (46-116) H Troponin I 0.185 ng/mL (0.000-0.056) 0.006 ng/mL (0.000-0.056) C-Reactive Protein, Quantitative 73.9 mg/dL (0.00-0.90) H 49.2 mg/dL (0.00-0.90) H Total Protein 8.1 G/DL (6.4-8.2) 6.3 G/DL (6.4-8.2) L Albumin 2.3 G/DL (3.4-5.0) L 1.7 G/DL (3.4-5.0) L Globulin 5.8 g/dL 4.6 g/dL Albumin/Globulin Ratio 0.4 (1.0-2.7) L 0.4 (1.0-2.7) L Urine Color Yellow Urine Appearance Slightly cloudy Urine pH 5 (4.5-8.0) Urine Specific [place] 1.015 (1.005-1.035) Urine Protein 2+ (NEGATIVE) H Urine Glucose (UA) Negative (NEGATIVE) Urine Ketones Negative (NEGATIVE) Urine Blood 4+ (NEGATIVE) H Urine Nitrite Positive (NEGATIVE) H Urine Bilirubin Negative (NEGATIVE) Urine Urobilinogen Normal MG/DL (0.0-1.0) Urine Leukocyte Esterase 2+ (NEGATIVE) H Urine RBC 10-15 /HPF (0 - 2) H Urine WBC 30-40 /HPF (0 - 2) H Urine Squamous Epithelial Cells Few /LPF (NONE/OCC) Urine Bacteria Moderate /HPF (NONE) H POC Whole Blood Glucose Pending Anion Gap 12 mmol/L (5-15) Phosphorus Level 4.3 MG/DL (2.5-4.9) Magnesium Level 2.9 MG/DL (1.8-2.4) H Test 11/12/19 08:21 11/12/19 16:03 11/12/19 19:48 Arterial Blood pH 7.402 (7.350-7.450) 7.371 (7.350-7.450) 7.441 (7.350-7.450) Arterial Blood Partial Pressure CO2 40.6 mmHg (35.0-45.0) 30.3 mmHg (35.0-45.0) L 25.8 mmHg (35.0-45.0) L Arterial Blood Partial Pressure O2 47.5 mmHg (75.0-100.0) 61.6 mmHg (75.0-100.0) L 55.5 mmHg (75.0-100.0) L Arterial Blood HCO3 24.7 mmol/L (22.0-26.0) 17.2 mmol/L (22.0-26.0) *L 17.2 mmol/L (22.0-26.0) *L Arterial Blood Oxygen Saturation 79.0 % (95-100) *L 88.9 % (95-100) *L 88.4 % (95-100) *L Arterial Blood Base Excess 0 (-2-2) -6.9 (-2-2) L -5.4 (-2-2) L [place] Test Positive Positive Positive Rhythm Strip Diag. Results EP Interpretation: yes Rhythm: no PVC's, no ectopy - ST Chest X-Ray Diagnostic Results Chest X-Ray Diagnostic Results : Chest X-Ray Ordered: Yes # of Views/Limited/Complete: 1 View Indication: Other EP Interpretation: Yes Interpretation: no effusion, no pneumothorax, other - Bilateral infiltrates and endotracheal tube appropriate placement Impression: Other Electronically Signed by: Electronically signed by Arvind Viera MD Last Vital Signs Date Time Temp Pulse Resp B/P (MAP) Pulse Ox O2 Delivery O2 Flow Rate FiO2 11/12/19 22:04 163 41 100 11/12/19 22:00 Mechanical Ventilator 11/12/19 21:31 48/33 11/12/19 20:01 95 11/12/19 16:00 98.4 11/12/19 11:09 15.0 Status: improved Disposition: ADMITTED INPATIENT Condition: Critical Referrals: NON PHYSICIAN (PCP) Arvind Viera MD Nov 12, 2019 22:56
--- NOTE | 2019-11-12 22:56 | Diagnostic Imaging Report ---
EXAM: XR Chest, 1 View CLINICAL HISTORY: LINE TECHNIQUE: Frontal view of the chest. COMPARISON: Chest radiograph dated 11/11/19. FINDINGS: Lungs: Extensive consolidation throughout the right lung similar to the prior study. Interval increase in airspace disease within the left midlung. Pleural space: Unremarkable. No pneumothorax. Heart: Cardiac size is enlarged. Mediastinum: Unremarkable. Bones/joints: There are degenerative changes of the spine. Vasculature: Calcification of the aortic arch. Tubes, lines and devices: Interval placement of endotracheal tube with the tip 4.1 cm above the jatinder. IMPRESSION: 1. Endotracheal tube tip is 4.1 cm above the jatinder. 2. Persistent extensive right lung consolidation. Interval worsening of left midlung consolidation. 3. Cardiomegaly.
[2019-11-13] VITALS (21 sets, daily range): BP systolic 41–106; BP diastolic 11–82
[2019-11-13] MEDS ORDERED: Vasopressin 100 UNITS in NS 95 ML IV SCH (00:15)
--- NOTE | 2019-11-13 04:55 | Emergency Room Report ---
History of Present Illness General Chief Complaint: Upper Respiratory Illness Source: Medical Record, EMS Present Illness HPI This patient was admitted for severe sepsis with COVID pneumonia. During the hospitalization, she deteriorated. She ended up being intubated and has a centr al line placed. She is on maximum pressors. Family made her DO NOT RESUSCITATE with chemical code only. No CPR or defibrillation. I responded to a CODE BLUE. Nursing staff says she became asystolic. They gave her a dose of epinephrine. She then had a V. tach rhythm. Afterward she had spontaneous return of pulse. About 10 minutes later she coded again. This time she remained in asystole. No pulse. I pronounced her at 4:41 AM. Family contacted. 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 COVID-19 Screening: Positive COVID-19 COVID-19 Testing Source: SNF Patient History Last Menstrual Period: NA Now: No Nursing Documentation-PMH Hx Cardiac Problems: Yes - CHF; CARDIOMYOPATHY Hx Hypertension: Yes Hx Cancer: Yes - PLEURAL Hx Gastrointestinal Problems: No Hx Dialysis: No - AKF History Of Psychiatric Problem: Yes - SCHIZOPHRENIA Hx Neurological Problems: Yes - ALZEIMERS Hx Cerebrovascular Accident: Yes Physical Exam Vital Signs Date Time Temp Pulse Resp B/P (MAP) Pulse Ox O2 Delivery O2 Flow Rate FiO2 11/11/19 21:46 96.1 110 26 145/72 (96) 97 Non-Rebreather 15.0 11/12/19 12:12 100 Medical Decision Making Diagnostic Impression: Primary Impression: Respiratory failure with hypoxia Qualified Codes: J96.21 - Acute and chronic respiratory failure with hypoxia Additional Impressions: Pneumonia due to COVID-19 virus Cardiac arrest ER Course Patient with cardiac arrest. She remained asystolic. Last Vital Signs Date Time Temp Pulse Resp B/P (MAP) Pulse Ox O2 Delivery O2 Flow Rate FiO2 11/13/19 02:54 153 29 100 11/13/19 02:00 67/22 (37) 11/13/19 00:30 84 11/13/19 00:00 Mechanical Ventilator 11/13/19 00:00 99.8 11/12/19 11:09 15.0 Status: worsened Disposition: Condition: Referrals: NON PHYSICIAN (PCP) Jakob Burrell MD Nov 13, 2019 04:55
[2019-11-13 06:05] LABS: HEMATOCRIT 39.1 % (37.0-47.0); HEMOGLOBIN 11.8 G/DL (12.0-16.0); MEAN CORPUSCULAR VOLUME 96 FL (80-99); PLATELET COUNT 37 K/UL (150-450); RED BLOOD COUNT 4.07 M/UL (4.20-5.40); RED CELL DISTRIBUTION WIDTH 16.9 % (11.6-14.8); WHITE BLOOD COUNT 2.7 K/UL (4.8-10.8)
[2019-11-13] MEDS ORDERED: NS 275ml ONE (06:32)
[2019-11-13 06:53] LABS: ALANINE AMINOTRANSFERASE 75 U/L (12-78); ALBUMIN 1.8 G/DL (3.4-5.0); ALBUMIN/GLOBULIN RATIO 0.5 (1.0-2.7); ALKALINE PHOSPHATASE 240 U/L (46-116); ANION GAP 27 mmol/L (5-15); ASPARTATE AMINO TRANSFERASE 186 U/L (15-37); BILIRUBIN,TOTAL 1.7 MG/DL (0.2-1.0); BLOOD UREA NITROGEN 89 mg/dL (7-18); CHLORIDE 117 MMOL/L (98-107); CHOLESTEROL < 50 MG/DL (< 200); CREATININE 3.2 MG/DL (0.55-1.30); HDL CHOLESTEROL 15 MG/DL (40-60); PHOSPHORUS 8.2 MG/DL (2.5-4.9); SODIUM 152 MMOL/L (136-145); TRIGLYCERIDES 62 MG/DL (30-150)
[2019-11-13 06:55] LABS: CARBON DIOXIDE 8 MMOL/L (21-32); POTASSIUM 7.3 MMOL/L (3.5-5.1)
[2019-11-13 06:56] LABS: BILIRUBIN,DIRECT 1.1 MG/DL (0.0-0.3)
--- NOTE | 2019-11-15 09:29 | Discharge Summary ---
Discharge Summary Discharge Summary _ SUMMARY DATE OF ADMISSION: 11/11/2019 DATE OF EXPIRATION: 11/13/2019 REASON FOR ADMISSION: 89 years old female, resident of [facility] facility, with past medical history of congestive heart failure , cardiomyopathy , hypertension ,CVA ,Alzheimer dementia ,schizophrenia, malignant pleural effusion ,apparently was admitted to [facility] last month and discharged to the [facility] recently. Patient apparently had COVID pneumonia diagnosed on November 07, 2019 . Patient presented with chief complaint of shortness of breath and fever. Per paramedics fever was 101 at the nursing facility. Upon evaluation patient was tachycardic , tachypneic and hypoxic, requiring 100% nonrebreather mask. EKG revealed rapid atrial fibrillation. Chest x-ray demonstrated right lung infiltrate and small right effusion. Laboratory work-up revealed no leukocytosis , stable hemoglobin hematocrit ; platelet count 80. Neutrophils 81 . ABG on 100% nonrebreathing mask revealed severe hypoxia . Patient subsequently was placed on the BiPAP. Chemistry demonstrated severe hypernatremia with sodium 162, chloride 120. BUN 95, creatinine 2.3. Glucose 53. Calcium 10.3. Lactic acid 2.4. Troponin elevated 0.185. AST 56 , ALT 59. Ferritin above 2000, CRP 73.9, D-dimer 4.28. Urinalysis revealed +2 protein, pyuria and moderate bacteria. Septic work-up initiated . Patient pancultured , started on empiric antibiotic and o received IV bolus. Patient received Lovenox , Cardizem and steroids . Patient subsequently admitted for further management. CONSULTANTS: medical secretary teacher Dr. Renteria pulmonary Dr. Tran compliance vice president Dr. Bower [facility]: Patient initially admitted to [facility] isolation room. Patient started on antibiotic ( ceftriaxone and Azithromycin) and continued on steroids. Patient was on the BiPAP . Echocardiogram revealed severe cardiomyopathy with global left ventricular hypokinesis with estimated left ventricular ejection fraction 20 to 25%. Moderate tricuspid regurgitation. Venous duplex bilateral lower extremity revealed no acute DVT. Per medical secretary teacher , elevated troponin was possibly due to renal failure.No changes on ECG. Second troponin was negative. But the next troponin showed elevation -1.611. Patient started on antiplatelet therapy with aspirin and beta blockage. Beta blockage stopped when patient developed hypotension . DVT and GI prophylaxis provided . Patient was hypotensive and subsequently required placement of central line by emergency room physician , and started on lavished. Hemodynamic status was closely monitored with goal to keep mean arterial blood pressure above 65 . Patient required initiation of two additional pressors phenylephrine and vasopressin. Bolus of albumin provided. Patient was followed -up with ABG , which consistently showed hypoxia . Patient subsequently was orally intubated by emergency room physician. Ventilator support and pulmonary toilet provided. Renal ultrasound revealed small echogenic right kidney, likely reflecting medical renal disease. No obstructive uropathy. Renal parameters and electrolytes were closely monitored, electrolytes corrected as needed. Creatinine trended up to 3.2. Sodium improved from 162 down to 152. Blood culture revealed E. coli. Urine culture revealed E. coli ESBL. Patient was rapidly deteriorated. Patient was on maximum pressors. Family made her DNR status with chemical code only ; no CPR or defibrillation. CODE BLUE was called due to asystole. Patient received treatment with medications with spontaneous return of circulation. However, patient coded again. At that time she remained in asystole. Patient subsequently was pronounced at 4:41 AM 11/12. Cause of : cardiopulmonary arrest FINAL DIAGNOSES: Severe sepsis with shock Ecoli bacteremia ( due to UTI) Pneumonia due to COVID virus Acute hypoxemic respiratory failure requiring BiPAP and eventually intubation Acute metabolic encephalopathy E coli ESBL UTI Elevated troponin, possible acute coronary syndrome Acute on chronic renal failure Dehydration Hypernatremia Rapid atrial fibrillation Cardiomyopathy Congestive heart failure Cerebrovascular disease Alzheimer dementia Dysphagia Schizophrenia I have been assigned to dictate discharge summary for this account. I was not involved in the patient's management. Lou Gonzalez NP Nov 15, 2019 09:29
== END 2019-11-13 04:41 | disposition expired | DRG 871 ==
LOC: EDBD 21:50 → EMR 22:21 → 2E 23:01 → EDBEDREQ 23:25 → 2W 11-12 08:27 → ICU 11-12 14:32
PROC: 06HM33Z Insertion of Infusion Device into Right Femoral Vein, Percutaneous Approach (ICD-10-PCS; principal; 2019-11-11)
PROC: 5A09357 Assistance with Respiratory Ventilation, Less than 24 Consecutive Hours, Continuous Positive Airway Pressure (ICD-10-PCS; principal; 2019-11-11)
PROC: 0BH17EZ Insertion of Endotracheal Airway into Trachea, Via Natural or Artificial Opening (ICD-10-PCS; 2019-11-12)
PROC: 5A1935Z Respiratory Ventilation, Less than 24 Consecutive Hours (ICD-10-PCS; 2019-11-12)
DX: A41.89 Other specified sepsis (principal); U07.1 COVID-19; J12.89 Other viral pneumonia; G93.41 Metabolic encephalopathy; R65.21 Severe sepsis with septic shock; J96.01 Acute respiratory failure with hypoxia; N17.9 Acute kidney failure, unspecified; I13.0 Hypertensive heart and chronic kidney disease with heart failure and stage 1 through stage 4 chronic kidney disease, or unspecified chronic kidney disease; E87.0 Hyperosmolality and hypernatremia; I24.9 Acute ischemic heart disease, unspecified; I48.20 Chronic atrial fibrillation, unspecified; N39.0 Urinary tract infection, site not specified; R65.20 Severe sepsis without septic shock; I50.9 Heart failure, unspecified; G30.9 Alzheimer's disease, unspecified; F02.80 Dementia in other diseases classified elsewhere, unspecified severity, without behavioral disturbance, psychotic disturbance, mood disturbance, and anxiety; F20.9 Schizophrenia, unspecified; R13.10 Dysphagia, unspecified; N18.9 Chronic kidney disease, unspecified; Z79.82 Long term (current) use of aspirin; B96.20 Unspecified Escherichia coli [E. coli] as the cause of diseases classified elsewhere; I48.91 Unspecified atrial fibrillation; Z66 Do not resuscitate
CPT/HCPCS: 36415; 71045; 76770; 80053; 80061; 81003; 82248; 82728; 82803; 82962; 82977; 83036; 83605; 83615; 83735; 83880; 84100; 84443; 84484; 84550; 85007; 85025; 85379; 86140; 87040; 87081; 87086; 87181; 93005; 93306; 93970; 94002; 94660; 94664; 96361; 96365; 96368; 96372; 96375; 99291; 99292; J0171; J2370; J7030